=== PATIENT | male | born 2000 | race Caucasian/White ===

== ENCOUNTER 2018-01-07 03:38 | Emergency (ER) | payer OTHER ==
[2018-01-07] MEDS ORDERED: IBUPROFEN 600 MG TAB PO ONE ×2 (04:09→04:17)
--- NOTE | 2018-01-07 04:34 | EDPHY ---
H & P Stated Complaint: L WRIST INJ/FELL WHILE PLAYING BASKETBALL Time Seen by Provider: 01/07/18 04:12 HPI/ROS: Chief Complaint: Left wrist injury HPI: 17-year-old male fell on an outstretched wrist when he fell while playing basketball. He felt immediate pop. He has had pain and swelling in his wrist. No prior injuries. No other injuries. ROS: 10 point Review of Systems is negative except as noted in the HPI. PMH: Denies Social History: No smoking, no alcohol, no recreational drug use Family History: non-contributory Physical Exam: General: Awake, alert, no acute distress Left wrist. Patient has tenderness and swelling over his distal radius. No mid hand tenderness. Sensations intact in the radial, median, and ulnar nerve distribution. Capillary refills less than 2 seconds. 2+ radial ulnar pulses. Skin: No rash - Personal History Current Tetanus Diphtheria and Acellular Pertussis (TDAP): Yes - Medical/Surgical History Hx Asthma: No Hx Chronic Respiratory Disease: No Hx Diabetes: No Hx Cardiac Disease: No Hx Renal Disease: No Hx Cirrhosis: No Hx Alcoholism: No Hx HIV/AIDS: No Hx Splenectomy or Spleen Trauma: No Other PMH: DENIES - Social History Smoking Status: Never smoked Constitutional: Initial Vital Signs Temperature (C) 36.8 C 01/07/18 03:49 Heart Rate 109 H 01/07/18 03:49 Respiratory Rate 16 01/07/18 03:49 Blood Pressure 123/102 H 01/07/18 03:49 O2 Sat (%) 93 01/07/18 03:49 O2 Delivery Mode Room Air Allergies/Adverse Reactions: No Known Allergies Allergy (Unverified 01/07/18 03:51) Home Medications: Medication Instructions Recorded Hydrocodone/Acetaminophen 1 - 2 each PO Q4-6PRN PRN #10 01/07/18 [Hydrocodon-Acetaminophen 5-325] tablet Medical Decision Making - Diagnostics Imaging Results: X-rays consistent with an impacted, slightly angulated distal radius and ulnar fracture. ED Course/Re-evaluation: Patient has a distal radius and ulnar fracture, impacted in very slightly angulated. Do not believe it requires reduction in the emergency department. He has been placed in a dorsal and volar splint. I have inspected the splint. He has good immobility with normal perfusion. Will refer to Orthopedics for follow-up. - Data Points Medications Given: Discontinued Medications Ibuprofen (Motrin) 600 mg PO EDNOW ONE Stop: 01/07/18 04:18 Last Admin: 01/07/18 04:18 Dose: 600 mg Departure - Departure Disposition: Home, Routine, Self-Care Clinical Impression: Wrist fracture Condition: Good Instructions: Wrist Fracture in Adults (ED), R.I.C.E. Treatment (ED) Additional Instructions: Alternate acetaminophen (1000 mg) with ibuprofen (400 mg) every 4 hours as needed for pain. You may also take [place] as needed for breakthrough pain. Do not take acetaminophen if you're taking the [place]. Follow up with Orthopedics in 2-3 days for further evaluation. Referrals: Kris Sanchez MD [Medical Doctor] - As per Instructions Prescriptions: Hydrocodone/Acetaminophen [Hydrocodon-Acetaminophen 5-325] 1 - 2 each PO Q4- 6PRN PRN #10 tablet PRN Reason: Pain, Severe
[2018-01-07] MEDS ORDERED: HYDROCOD/APAP 5/325 PREPACK#6 BTL TAKEHOME ONE (04:35)
[2018-01-07 05:15] VITALS: BP 119/85
== END 2018-01-07 05:16 | disposition home or self-care (01) ==
DX: S52.202A Unspecified fracture of shaft of left ulna, initial encounter for closed fracture (principal); S52.502A Unspecified fracture of the lower end of left radius, initial encounter for closed fracture; W19.XXXA Unspecified fall, initial encounter; Y93.67 Activity, basketball

== ENCOUNTER → 2018-01-25 | Outpatient (CLI) | payer OTHER | LOC: BMCIMAGING 08:37 | PROVIDERS: ATTEND Physician Assistant | DX: S52.502D Unspecified fracture of the lower end of left radius, subsequent encounter for closed fracture with routine healing (principal); S52.612D Displaced fracture of left ulna styloid process, subsequent encounter for closed fracture with routine healing ==

== ENCOUNTER → 2018-02-20 | Outpatient (CLI) | payer OTHER | LOC: BMCIMAGING 14:31 | PROVIDERS: ATTEND Orthopaedic Surgery Hand Surgery | DX: Z09 Encounter for follow-up examination after completed treatment for conditions other than malignant neoplasm (principal); S52.502D Unspecified fracture of the lower end of left radius, subsequent encounter for closed fracture with routine healing; S52.612D Displaced fracture of left ulna styloid process, subsequent encounter for closed fracture with routine healing ==